=== PATIENT | male | born 1960 | race Caucasian/White ===

== ENCOUNTER 2018-02-15 04:13 | Observation (INO) ==
--- NOTE | 2018-02-15 05:03 | Emergency Department Note ---
Disposition Clinical Impression: Abdominal pain, Atypical chest pain, Cholelithiasis Disposition: Transfer Short-Term Hosp Condition: Fair Referrals: Melisa Desir MD [Primary Care Provider] - Forms: ED Satisfaction Letter, Work/School Release Time of Disposition: 08:07 General Adult HPI - General Chief complaint: ED Abdominal Pain Stated complaint: Stomachache Time Seen by Provider: 02/15/18 04:40 Source: patient Limitations: no limitations Nursing Notes Reviewed: Yes Vital Signs Reviewed: Yes - History of Present Illness HPI Narrative: Patient presents today with CC of: stomach ache Patient describes issue began around 2 days ago the patient noticed that he started to have some abdominal discomfort in mid epigastric area. Nothing seems to make it better or worse. Patient woke up today around 3 AM and the pain was even worse than before so he came into the emergency department. Rates it as an 8 out of 10. Patient describes it as a burning. Patient ate some spaghetti last night for dinner but it tasted fine and he doesn't think it is food related. It is not related to exertion either. Patient denies any alcohol use. Patient has had surgery on his lower abdomen where he had an appendix taken out in 1984. Patient denies any chest pain or shortness of breath or breaking into a sweat. He said he has not had any fever. Has not had blood in his stool, has been urinating normally. Patient has multiple risk factors for cardiac disease including age, male, cholesterol, family history, diabetes, smoking, hypertension, weight. Patient has stress test about 5 years ago. Pain Scale: 8 - Related Data Home Medications Medication Instructions Recorded Confirmed Aspirin [Adult Aspirin Regimen] 81 mg PO DAILY 02/15/18 02/15/18 Carvedilol [Coreg] 25 mg PO DAILY 02/15/18 02/15/18 Fenofibrate 150 mg PO DAILY 02/15/18 02/15/18 GlipiZIDE [Glipizide ER] 10 mg PO DAILY 02/15/18 02/15/18 Hydrochlorothiazide [Microzide] 12.5 mg PO DAILY 02/15/18 02/15/18 Lisinopril [Zestril] 40 mg PO DAILY 02/15/18 02/15/18 Metformin HCl [Fortamet] 1,000 mg PO DAILY 02/15/18 02/15/18 Omeprazole [PriLOSEC] 40 mg PO DAILY 02/15/18 02/15/18 Pioglitazone [Actos] 15 mg PO DAILY 02/15/18 02/15/18 Tamsulosin [Flomax] 0.4 mg PO DAILY 02/15/18 02/15/18 amLODIPine [Norvasc] 5 mg PO DAILY 02/15/18 02/15/18 Allergies Allergy/AdvReac Type Severity Reaction Status Date / Time No Known Allergies Allergy Verified 02/15/18 04:27 All systems ED: reviewed and negative except as stated. Review of Systems: As Per HPI Past Medical History - Past Medical History Medical history: Reports: diabetes, GERD, hyperlipidemia, hypertension Psychiatric history: Reports: no psych history - Social History Smoking Status: Current every day smoker Smokeless Tobacco Status: No Alcohol use: Reports: none Drug use: Reports: none Physical Exam I have reviewed initial and available nurse's notes for the patient. The patient 's medications, allergies, and medical history was reviewed. Family, Social & Surg histories were reviewed and are not relevant except as noted above in the history of present illness, or below in the respective specific section. I have reviewed and agree with all vital signs synchronously available in EMR at the time of this dictation. Times documented are the time of computer entry, are not necessarily the time the event occurred. At least 10 systems reviewed with patient or surrogate during physical exam and are otherwise negative. Physical EXAM: General ~ Constitutional: Conscious & cooperative , generally healthy appearance Head: NCAT Eyes: Sclera white , conjunctiva clear , PERRL, non-icteric ENT : L Tympanic membrane normal color and landmarks R Tympanic membrane normal color and landmarks Canals are clear without significant drainage , no obstruction or vesicles , pinna and tragus non tender Nose with pink nasal mucosa, nares patent, non tender without bleeding Mouth - mucous membrane moist , pink , no lesions , no trismus Neck - no masses , supple , no cervical spinous process tenderness Pharynx - no exudate , no petechia or obvious lesions , no airway obstruction or stridor Hematologic ~ Lymphatic ~ Immunologic: Lymphadenopathy normal , no petechia , Skin color, nails and pulses unremarkable. Heart ~ Chest: Reg rate , nml Rhythm , nl S1/S2 , no MRG Lungs: Breath sounds equal , clear to auscultation bilaterally , no wheezing, no rales or rhonchi , no CVA tenderness Gastrointestinal ~ Abd: Soft & tender in epiastric area , BS + in 4 quads , No HSM or masses , no peritoneal signs GenitoUrinary: Deferred Musculoskeletal ~ Back ~ Extremities: Warm and w/o clubbing , cyanosis , or edema. No point tenderness , good ROM of major joints Neurologic: Cranial nerves grossly intact, good muscle strength , attention good , cooperative , Alert and oriented x4 Psychiatric: Calm , Insight and mood appropriate , Skin: No rashes , good skin turgor , cap refill 2-3 seconds , warm and dry - General Limitations: no limitations General appearance: alert, in no apparent distress Course Vital Signs Temperature 98.2 F 02/15/18 04:22 Pulse Rate 74 02/15/18 04:22 Respiratory Rate 16 02/15/18 04:22 Blood Pressure 141/83 02/15/18 04:22 O2 Sat by Pulse Oximetry 98 02/15/18 04:22 Temperature 98.2 F 02/15/18 04:22 Pulse Rate 81 02/15/18 08:19 Respiratory Rate 16 02/15/18 08:19 Blood Pressure 163/89 02/15/18 08:19 O2 Sat by Pulse Oximetry 98 02/15/18 04:22 Oxygen Delivery Oxygen Delivery Room Air Medical Decision Making - MDM Narrative Medical decision making narrative: MDM: History and physical exam is consistent with - epigastric pain - cholelithiasis, atypical CP, DDx included multiple etiologies for the symptoms such as - atypical CP, ACS, Pneumonia, pneumothorax, Gerd, AAA, PE cholelithiasis, cholecystitis XRAYS: AAS - no law CP or abd problems, CT scan shows cholelithiasis without evidence of cholecystitis Critical Care: None Condition and evaluation here was discussed in detail. Labwork, and test results were reviewed with the patient and family and they are agreeable to admission to the hospital for further evaluation as well as troponin testing because of the patient's multiple risk factors for cardiac disease. I discussed patient with Dr. Mcnulty who is agreeable to admission to the hospital - Lab Data Result diagrams: 02/15/18 05:30 02/15/18 05:30 Lab Results 02/15/18 02/15/18 02/15/18 Range/Units 05:07 05:30 05:30 WBC 6.2 (4.3-11.1) K/mcL RBC 3.74 L (4.19-5.50) M/mcL Hgb 11.4 L (12.9-16.9) g/dL Hct 33.2 L (37.5-50.1) % MCV 88.8 (83.0-100.0) fL MCH 30.5 (28.0-33.3) pg MCHC 34.3 (31.6-35.5) g/dL RDW 13.8 (11.5-14.5) % Plt Count 279 (140-400) K/mcL MPV 9.8 (9.4-12.4) fL Immature Gran % 0.5 (0-4) % Seg Neutrophils % 44.6 % Lymphocytes % 41.8 % Monocytes % 9.9 % Eosinophils % 2.4 % Basophils % 0.8 % Neutrophils # 2.8 (1.6-8.9) K/mcL Lymphocytes # 2.6 (0.6-4.6) K/mcL Monocytes # 0.6 (0.0-1.3) K/mcL Eosinophils # 0.2 (0.0-0.6) K/mcL Basophils # 0.1 (0.0-0.2) K/mcL Nucleated RBCs/100 WBC 0.3 H (0) /100 WBC PT 10.7 (9.4-12.1) Seconds INR 1.0 Sodium (136-145) mEq/L Potassium (3.5-5.1) mEq/L Chloride (98-107) mEq/L Carbon Dioxide (23-29) mEq/L BUN (6-20) mg/dL Creatinine (0.70-1.30) mg/dL Est GFR ( Amer) (> 60) Est GFR (Non-Af Amer) (> 60) BUN/Creatinine Ratio (6-26) Glucose (70-105) mg/dL Calculated Osmolality (280-300) Calcium (8.6-10.3) mg/dL Total Bilirubin (0.3-1.0) mg/dL Direct Bilirubin (0.0-0.2) mg/dL Indirect Bilirubin (0.0-1.2) mg/dL AST (13-39) Units/L ALT (7-52) Units/L Alkaline Phosphatase (34-104) Units/L Troponin I (< 0.04) ng/mL Serum Total Protein (6.4-8.9) g/dL Albumin (3.5-5.7) g/dL Globulin (2.4-3.5) g/dL Albumin/Globulin Ratio (1.1-2.2) Amylase (29-103) Units/L Lipase (11-82) Units/L Urine Color Yellow (Yellow) Urine Clarity Clear (Clear) Urine pH 5.5 (5.0-8.0) pH Units Ur Specific [place] >= 1.030 H (1.010-1.025) Urine Protein Negative (Neg-Trace) mg/dL Urine Glucose (UA) 100 H (Normal) mg/dL Urine Ketones Negative (Negative) mg/dL Urine Blood Negative (Negative) Urine Nitrite Negative (Negative) Urine Bilirubin Negative (Negative) Urine Urobilinogen Normal (Normal) mg/dL Ur Leukocyte Esterase Negative (Negative) Ur Culture Indicated? NO (NO) 02/15/18 Range/Units 05:30 WBC (4.3-11.1) K/mcL RBC (4.19-5.50) M/mcL Hgb (12.9-16.9) g/dL Hct (37.5-50.1) % MCV (83.0-100.0) fL MCH (28.0-33.3) pg MCHC (31.6-35.5) g/dL RDW (11.5-14.5) % Plt Count (140-400) K/mcL MPV (9.4-12.4) fL Immature Gran % (0-4) % Seg Neutrophils % % Lymphocytes % % Monocytes % % Eosinophils % % Basophils % % Neutrophils # (1.6-8.9) K/mcL Lymphocytes # (0.6-4.6) K/mcL Monocytes # (0.0-1.3) K/mcL Eosinophils # (0.0-0.6) K/mcL Basophils # (0.0-0.2) K/mcL Nucleated RBCs/100 WBC (0) /100 WBC PT (9.4-12.1) Seconds INR Sodium 136 (136-145) mEq/L Potassium 3.4 L (3.5-5.1) mEq/L Chloride 103 (98-107) mEq/L Carbon Dioxide 25 (23-29) mEq/L BUN 13 (6-20) mg/dL Creatinine 0.98 (0.70-1.30) mg/dL Est GFR ( Amer) > 60 (> 60) Est GFR (Non-Af Amer) > 60 (> 60) BUN/Creatinine Ratio 13 (6-26) Glucose 249 H (70-105) mg/dL Calculated Osmolality 290 (280-300) Calcium 10.3 (8.6-10.3) mg/dL Total Bilirubin 0.3 (0.3-1.0) mg/dL Direct Bilirubin 0.1 (0.0-0.2) mg/dL Indirect Bilirubin 0.2 (0.0-1.2) mg/dL AST 16 (13-39) Units/L ALT 24 (7-52) Units/L Alkaline Phosphatase 64 (34-104) Units/L Troponin I < 0.03 (< 0.04) ng/mL Serum Total Protein 6.1 L (6.4-8.9) g/dL Albumin 4.1 (3.5-5.7) g/dL Globulin 2.0 L (2.4-3.5) g/dL Albumin/Globulin Ratio 2.1 (1.1-2.2) Amylase 34 (29-103) Units/L Lipase 47 (11-82) Units/L Urine Color (Yellow) Urine Clarity (Clear) Urine pH (5.0-8.0) pH Units Ur Specific [place] (1.010-1.025) Urine Protein (Neg-Trace) mg/dL Urine Glucose (UA) (Normal) mg/dL Urine Ketones (Negative) mg/dL Urine Blood (Negative) Urine Nitrite (Negative) Urine Bilirubin (Negative) Urine Urobilinogen (Normal) mg/dL Ur Leukocyte Esterase (Negative) Ur Culture Indicated? (NO) - EKG Data EKG #1 EKG results narrative: HEART SCORE : H=1 E=1 A=1 R=2 T=0 HEART Score: H= Suspiciousness: High=2, mod=1, min=0 E= EKG: Significant ST=2, nonspecific repol=1, normal=0 A= Age: >65 =2, 45-65=1, ,45=0 R= Risk Factors: >3 RF or hx of ASVD=2, 1-2 RF=1, 0 RF=0 smoker, Lipids, HTN, diabetes mellitus, + family history, obesity, T= Troponin: >3xnrml=2, 1-3Xnrml=1, < nrml=0 EKG interpretation Rhythm - nsr Rate - 68 CA - 173 QRS - 91 QTC - 381 ST-T waves - nonspecific ST and T-wave changes in inferior leads III & AVF Injury pattern - no acute injury pattern
[2018-02-15 05:33] LABS: Basophils # 0.1 K/mcL (0.0-0.2); Basophils % 0.8 %; Eosinophils # 0.2 K/mcL (0.0-0.6); Eosinophils % 2.4 %; Hematocrit 33.2 % (37.5-50.1); Hemoglobin 11.4 g/dL (12.9-16.9); Immature Granulocytes % 0.5 % (0-4); Lymphocytes # 2.6 K/mcL (0.6-4.6); Lymphocytes % 41.8 %; Mean Corpuscular HGB Conc 34.3 g/dL (31.6-35.5); Mean Corpuscular Hemoglobin 30.5 pg (28.0-33.3); Mean Corpuscular Volume 88.8 fL (83.0-100.0); Mean Platelet Volume 9.8 fL (9.4-12.4); Monocytes # 0.6 K/mcL (0.0-1.3); Monocytes % 9.9 %; Neutrophils # 2.8 K/mcL (1.6-8.9); Nucleated Red Blood Cells 0.3 /100 WBC (0); Platelet Count 279 K/mcL (140-400); Red Blood Count 3.74 M/mcL (4.19-5.50); Red Cell Distribution Width 13.8 % (11.5-14.5); Segmented Neutrophils % 44.6 %
[2018-02-15 05:38] LABS: Bilirubin,Urine Negative (Negative); Blood,Urine Negative (Negative); Clarity,Urine Clear (Clear); Color,Urine Yellow (Yellow); Glucose,Urine (UA) 100 mg/dL (Normal); Ketones,Urine Negative (Negative); Leukocyte Esterase,Urine Negative (Negative); Nitrite,Urine Negative (Negative); PH,Urine 5.5 pH Units (5.0-8.0); Protein,Urine Negative (Neg-Trace); Specific Gravity,Urine >= 1.030 (1.010-1.025); Urobilinogen,Urine Normal (Normal)
[2018-02-15 05:44] LABS: Prothrombin Time 10.7 Seconds (9.4-12.1)
[2018-02-15 05:55] LABS: Alanine Aminotransferase 24 Units/L (7-52); Albumin 4.1 g/dL (3.5-5.7); Albumin/Globulin Ratio 2.1 (1.1-2.2); Alkaline Phosphatase 64 Units/L (34-104); Amylase 34 Units/L (29-103); Aspartate Amino Transferase 16 Units/L (13-39); BUN/Creatinine Ratio 13 (6-26); Bilirubin,Direct 0.1 mg/dL (0.0-0.2); Bilirubin,Indirect 0.2 mg/dL (0.0-1.2); Bilirubin,Total 0.3 mg/dL (0.3-1.0); Blood Urea Nitrogen 13 mg/dL (6-20); Calcium 10.3 mg/dL (8.6-10.3); Carbon Dioxide 25 mEq/L (23-29); Chloride 103 mEq/L (98-107); Glucose 249 mg/dL (70-105); Lipase 47 Units/L (11-82); Osmolality,Calculated 290 (280-300); Potassium 3.4 mEq/L (3.5-5.1); Sodium 136 mEq/L (136-145); Total Protein 6.1 g/dL (6.4-8.9); eGFR For African Americans > 60 (> 60); eGFR For Non-African Americans > 60 (> 60)
[2018-02-15 05:58] LABS: Troponin I < 0.03 ng/mL (< 0.04)
[2018-02-15] MEDS ORDERED: Famotidine 20 MG/2 ML VIAL IVP ONE (07:41)
[2018-02-15] MEDS ORDERED: Pantoprazole 40 MG VIAL IVP ONE (07:41)
[2018-02-15] MEDS ORDERED: Naloxone 0.4 MG/ML INJ IVP PRN ×2 (08:12→09:30)
[2018-02-15] MEDS ORDERED: amLODIPine 5 MG TABLET PO SCH (09:30)
[2018-02-15] MEDS ORDERED: *HR* Pioglitazone 15 MG TABLET PO SCH (09:30)
[2018-02-15] MEDS ORDERED: *HR* Metformin 500 MG TABLET PO SCH ×2 (09:30→17:00)
[2018-02-15] MEDS ORDERED: *HR* GlipiZIDE XL (24 HR) 10 MG TABLET PO SCH (09:30)
[2018-02-15] MEDS ORDERED: hydroCHLOROthiazide 25 MG TABLET PO SCH (09:30)
[2018-02-15] MEDS ORDERED: Fenofibrate 54 MG TABLET PO SCH (09:30)
[2018-02-15] MEDS ORDERED: Aspirin Enteric Coated 81 MG Tablet PO SCH (09:30)
[2018-02-15] MEDS ORDERED: Lisinopril 20 MG TABLET PO SCH (09:30)
[2018-02-15 09:33] LABS: Basophils # 0.1 K/mcL (0.0-0.2); Basophils % 1.2 %; Eosinophils # 0.1 K/mcL (0.0-0.6); Eosinophils % 2.3 %; Hematocrit 34.2 % (37.5-50.1); Hemoglobin 11.6 g/dL (12.9-16.9); Immature Granulocytes % 0.7 % (0-4); Lymphocytes # 2.4 K/mcL (0.6-4.6); Lymphocytes % 40.2 %; Mean Corpuscular HGB Conc 33.9 g/dL (31.6-35.5); Mean Corpuscular Hemoglobin 30.2 pg (28.0-33.3); Mean Corpuscular Volume 89.1 fL (83.0-100.0); Mean Platelet Volume 9.6 fL (9.4-12.4); Monocytes # 0.6 K/mcL (0.0-1.3); Monocytes % 9.4 %; Neutrophils # 2.8 K/mcL (1.6-8.9); Platelet Count 281 K/mcL (140-400); Red Blood Count 3.84 M/mcL (4.19-5.50); Red Cell Distribution Width 13.8 % (11.5-14.5); Segmented Neutrophils % 46.2 %
[2018-02-15 10:06] LABS: BUN/Creatinine Ratio 13 (6-26); Blood Urea Nitrogen 12 mg/dL (6-20); Calcium 9.9 mg/dL (8.6-10.3); Carbon Dioxide 30 mEq/L (23-29); Chloride 104 mEq/L (98-107); Glucose 141 mg/dL (70-105); Osmolality,Calculated 288 (280-300); Potassium 3.5 mEq/L (3.5-5.1); Sodium 138 mEq/L (136-145); eGFR For African Americans > 60 (> 60); eGFR For Non-African Americans > 60 (> 60)
[2018-02-15] MEDS ORDERED: Famotidine 20 MG TABLET PO ONE (11:00)
--- NOTE | 2018-02-15 11:21 | Internal Med History&Physical ---
Date of Encounter: 02/15/18 Time of Encounter: 11:16 Assessment and Plan (1) Atypical chest pain Current visit: Yes Status: Acute Patient admitted for evaluation of a burning epigastric pain, which began [address] of abd showed no acute process. GB appeared nonacute. Admission labs showed no acute issues, which included a amylase and lipase. Initial Troponin was negative and admission EKG showed no ischemic changes. Patient denies any blood in stools or changes in BM. States history of NSAID use and states he does eat a lot of spicy foods in his diet. Patient pain has been resolving since admit. Will continue with serial troponins. Keep on cardiac rehabilitation specialist for 24 hrs. Will increase omeprazole dosing to 40mg and give Pepcid dose for today. (2) Diabetes Current visit: Yes Status: Chronic No acute issues. Initial glucose 141. Will continue on oral home DM meds. Start FS AC and HS with conservative SSI. Will obtain HgbA1c Qualifiers: Diabetes mellitus type: type 2 Diabetes mellitus care home insulin use: without long term care pharmacist use Diabetes mellitus complication status: with unspecified complications Qualified Code(s): E11.8 - Type 2 diabetes mellitus with unspecified complications (3) HTN (hypertension) Current visit: Yes Status: Chronic No acute issues. Admission VS slightly elevated. Will continue to monitor and continue home meds. Qualifiers: Hypertension type: essential hypertension Qualified Code(s): I10 - Essential (primary) hypertension Internal Medicine - H&P: HPI Chief complaint: epigastric pain Admitted From: Home Plans for Post Hospital Care: Home History of present illness: Mr. Mcmahon is a 58 year old male, who describes a burn type of epigastric pain that began around 2 days ago. Patient woke up today around 3 AM last night and the pain was even worse than before so he came into the emergency department. Rated it as an 8 out of 10. Patient denies any alcohol use. Patient denies any chest pain, palpitations, shortness of breath or diaphoresis. Denies productive cough, fever or chills. Has not had blood in his stool, has been urinating normally. Patient does state he has been taking the occasional NSAIDs for arthritic type pain. Patient has multiple risk factors for cardiac disease including age, male, cholesterol, family history, diabetes, smoking, hypertension, weight. Patient has stress test about 5 years ago. Patient currently states that his pain has began to resolve. Admission CT of abdomin was negative for any acute process. No acute issues noted in labs, which included an amylase and Lipase. Troponin was negative and EKG showed no ischemic changes. Patient placed on cardiac rehabilitation specialist which shows NSR w/o ectopy. States that his DM has been well controlled with most measurements taken at home between 120-140. Past Med Surg Social Fam HX - Past Medical History Medical history: arthritis, diabetes, GERD, hyperlipidemia, hypertension Psychiatric history: no psych history - Past Surgical History Surgical History: appendectomy - Social History Smoking Status: Current every day smoker Smokeless Tobacco Status: No Alcohol use: none Drug use: none Internal Medicine - H&P: Meds Aspirin [Adult Aspirin Regimen] 81 mg PO DAILY 02/15/18 [History] Atorvastatin [Lipitor] 80 mg PO HS 02/15/18 [History] Carvedilol [Coreg] 25 mg PO DAILY 02/15/18 [History] Fenofibrate 160 mg PO DAILY 02/15/18 [History] GlipiZIDE [Glipizide ER] 10 mg PO DAILY 02/15/18 [History] Hydrochlorothiazide [Microzide] 12.5 mg PO DAILY 02/15/18 [History] Lisinopril [Zestril] 40 mg PO DAILY 02/15/18 [History] Omeprazole [PriLOSEC] 40 mg PO DAILY 02/15/18 [History] Pioglitazone [Actos] 15 mg PO DAILY 02/15/18 [History] Tamsulosin [Flomax] 0.4 mg PO DAILY 02/15/18 [History] amLODIPine [Norvasc] 10 mg PO DAILY 02/15/18 [History] metFORMIN [Glucophage] 1,000 mg PO BIDWM 02/15/18 [History] 3 Allergy/AdvReac Type Severity Reaction Status Date / Time No Known Allergies Allergy Verified 02/15/18 04:27 All Systems PM: A 10-system review of systems was performed and is negative for pertinent findings except as documented above in the HPI. - Constitutional Constitutional: as per HPI, no chills, no fever(s), no night sweats - EENT Eyes: no change in vision, no discharge, no pain, no photophobia Ears: no ear discharge, no ear pain, no tinnitus Nose, mouth and throat: no dysphagia, no nasal discharge, no neck pain, no sore throat - Cardiovascular Cardiovascular ROS IM: as per HPI, no chest pain, no diaphoresis, no dyspnea, no lightheadedness, no palpitations, no syncope - Respiratory Respiratory: as per HPI, no cough, no dyspnea, no wheezing, no excessive phlegm production - Gastrointestinal Gastrointestinal: as per HPI, abdominal pain, no diarrhea, no hematemesis, no hematochezia, no melena, no nausea, no vomiting - Genitourinary Genitourinary ROS male: as per HPI - Musculoskeletal Musculoskeletal ROS IM: no numbness, no tingling - Integumentary Integumentary IM: no rash, no unusual bruising - Neurological Neurological ROS: no confusion, no convulsions, no focal weakness, no numbness, no tingling, no tremor(s) - Hematologic/Lymphatic Hematologic/Lymphatic: no easy bruising - Constitutional Vitals: Temp Pulse Resp BP Pulse Ox 97.9 F 73 16 166/90 98 02/15/18 09:54 02/15/18 09:54 02/15/18 09:00 02/15/18 09:54 02/15/18 09:54 General appearance: Present: A&O X 3, pleasant - Head Head exam: Present: atraumatic, normocephalic - Eye Eye exam: Present: PERRL, conjuntiva pink, sclera anicteric Pupils: Present: PERRL - Neck Neck exam general surgery: Present: supple, trachea midline. Absent: lymphadenopathy - Respiratory Respiratory exam: Present: CTAB. Absent: accessory muscle use, rales, rhonchi, wheezes - Cardiovascular Cardiovascular exam: Present: RRR, +S1, +S2. Absent: diastolic murmur, gallop, rubs, systolic murmur - GI/Abdominal GI/Abdominal exam: Present: normal bowel sounds, soft, no peritoneal signs. Absent: distended, tenderness - Extremities Exam Extremities exam: Present: warm, radial pulses palpable and symmetrical. Absent : calf tenderness, cyanotic, pedal edema - Neurological Exam Neurological exam: Present: CN II-XII intact, oriented X3, no focal deficits. Absent: pronater drift, facial droop, speech deficit - Skin Skin exam: Present: dry, intact Internal Med - H&P Results - Labs CBC & Chem 7: 02/15/18 09:23 02/15/18 09:23 Labs: Short CBC 02/15/18 Range/Units 09:23 WBC 6.1 (4.3-11.1) K/mcL Hgb 11.6 L (12.9-16.9) g/dL Hct 34.2 L (37.5-50.1) % Plt Count 281 (140-400) K/mcL Neutrophils # 2.8 (1.6-8.9) K/mcL BMP 02/15/18 09:23 Sodium 138 Potassium 3.5 Chloride 104 Carbon Dioxide 30 H BUN 12 Creatinine 0.91 Glucose 141 H Calcium 9.9 Cardiac Enzymes 02/15/18 Range/Units 09:23 Troponin I < 0.03 (< 0.04) ng/mL - EKG Data sinus rhythm Model/QRS: normal
--- NOTE | 2018-02-15 16:31 | Electrocardiograph Report ---
[address] [address] Test Date: 2018-02-15 Pat Name: Jens Mcmahon Department: 2000 Room: 114 Gender: M Control Supervisor: : [id number] Requested By: Asif Ding Order Number: [id number] Reading MD: Justine Alvarenga Measurements Intervals [place] Rate: 68 P: 59 MD: 173 QRS: 39 QRSD: 91 T: 41 QT: 364 QTc: 381 Interpretive Statements SINUS RHYTHM Electronically Signed On 02-15-2018 16:30:14 EDT by Justine Alvarenga
--- NOTE | 2018-02-15 20:30 | Discharge Summary ---
<Asif Dnig - Last Filed: 02/16/18 10:14> Date of Encounter: 02/16/18 Hospital course: Mr. Mcmahon is a 58 year old male - Time Spent with Patient Total time spent providing and/or coordinating discharge services: - Discharge Medications Prescriptions: Omeprazole [PriLOSEC] 20 mg PO BIDAC #60 cap Home Medications: Aspirin [Adult Aspirin Regimen] 81 mg PO DAILY 02/15/18 [History] Atorvastatin [Lipitor] 80 mg PO HS 02/15/18 [History] Carvedilol [Coreg] 25 mg PO DAILY 02/15/18 [History] Fenofibrate 160 mg PO DAILY 02/15/18 [History] GlipiZIDE [Glipizide ER] 10 mg PO DAILY 02/15/18 [History] Hydrochlorothiazide [Microzide] 12.5 mg PO DAILY 02/15/18 [History] Lisinopril [Zestril] 40 mg PO DAILY 02/15/18 [History] Omeprazole [PriLOSEC] 20 mg PO BIDAC #60 cap 02/15/18 [Rx] Omeprazole [PriLOSEC] 40 mg PO DAILY 02/15/18 [History] Pioglitazone [Actos] 15 mg PO DAILY 02/15/18 [History] Tamsulosin [Flomax] 0.4 mg PO DAILY 02/15/18 [History] amLODIPine [Norvasc] 10 mg PO DAILY 02/15/18 [History] metFORMIN [Glucophage] 1,000 mg PO BIDWM 02/15/18 [History] Allergies/Adverse Reactions: 3 Allergy/AdvReac Type Severity Reaction Status Date / Time No Known Allergies Allergy Verified 02/15/18 04:27 Date of admission: 02/15/18 08:50 Primary care physician: Melisa Desir - Constitutional Vitals: Temp Pulse Resp BP Pulse Ox 98.3 F 71 18 151/84 98 02/15/18 20:20 02/15/18 20:20 02/15/18 20:20 02/15/18 20:20 02/15/18 20:20 - Patient Status Disposition: Home, Self-Care Condition: Fair - Discharge Instructions Instructions: Chest Pain (GEN) Follow Up With: Melisa Desir MD [Primary Care Provider] - <Christiano Mcnulty - Last Filed: 02/17/18 10:09> - NOTES TO OUTPATIENT PROVIDER Notes to Outpatient Provider: He is to take omeprazole twice a day for at least 2 weeks. Think he should be switched from hydrochlorothiazide to another antihypertensive because of his diabetes. Advised to go gluten-free because of his hepatic steatosis. Advised he discussed his cholelithiasis with you. Orders not resulted at time of discharge: Pending orders 02/15/18 09:00 Hgb A1C Routine Date of Encounter: 02/17/18 Time of Encounter: 20:28 - Discharge Diagnosis (1) Abdominal pain Priority: Primary Status: Acute Qualifiers: Abdominal location: upper abdomen, unspecified Qualified Code(s): R10.10 - Upper abdominal pain, unspecified Hospital course: Mr. Mcmahon is a 58 year old male with epigastric pain that resolved upon admission and receiving acid suppression. Troponins and EKG were negative. He is discharged to follow with his family physician. Please see H&P this date. - Time Spent with Patient Total time spent providing and/or coordinating discharge services: Date of admission: 02/15/18 08:50 Primary care physician: Melisa Desir Discharging clinician: Christiano Mcnulty Anticipated date of discharge: 02/15/18 - Constitutional Vitals: Temp Pulse Resp BP Pulse Ox 97.9 F 66 16 166/90 98 02/15/18 15:25 02/15/18 15:25 02/15/18 09:00 02/15/18 15:25 02/15/18 15:25 General appearance: Present: A&O X 3, pleasant Exam: Please see H&P this date.
[2018-02-15 20:34] LABS: Estimated Average Glucose 160 mg/dl; Hemoglobin A1C 7.2 %
[2018-02-15 20:43] VITALS: BP 151/84
[2018-02-16] MEDS ORDERED: *HR* Enoxaparin 40 MG/0.4 ML SYRINGE SQ SCH (06:00)
== END 2018-02-15 20:51 | disposition home or self-care (01) ==
LOC: EMEROOGRE 04:13 → INPGRE 04:13